=== PATIENT | female | born 1980 | race Caucasian/White ===

== ENCOUNTER → 2016-07-04 | Outpatient (CLI) | payer OTHER | END | disposition home or self-care (01) | LOC: YCFC.O 15:06 | PROVIDERS: ATTEND Nurse Practitioner Family | DX: R50.9 Fever, unspecified (principal) ==

== ENCOUNTER → 2016-07-11 | Outpatient (CLI) | payer OTHER | LOC: YCFC.O 13:42 | PROVIDERS: ATTEND Nurse Practitioner Family | DX: R50.9 Fever, unspecified (principal) ==

== ENCOUNTER → 2017-07-10 | Outpatient (CLI) | payer OTHER | LOC: YCFC.O 13:44 | DX: N97.9 Female infertility, unspecified (principal) ==

== ENCOUNTER → 2018-05-15 | Outpatient (CLI) | payer OTHER | LOC: YCFC.O 08:29 | PROVIDERS: ATTEND Nurse Practitioner Family | DX: Z00.00 Encounter for general adult medical examination without abnormal findings (principal) ==

== ENCOUNTER → 2018-05-25 | Outpatient (CLI) | payer OTHER | LOC: YCFC.O 14:39 | PROVIDERS: ATTEND Family Medicine | DX: R94.5 Abnormal results of liver function studies (principal) ==

== ENCOUNTER → 2019-03-01 | Outpatient (CLI) | payer OTHER ==
--- NOTE | 2019-03-02 10:19 | US ---
EXAM DESCRIPTION: OB Level 2 /Maternal: Ultrasound. CLINICAL HISTORY: 38 years Female Gestational size and dates correlation. . Second trimester. anatomic survey. 2 para 0, AB 1. By medical history , EGA today is 22 weeks, 3 days, with WES of 07/02/2019. COMPARISON: Previous OB ultrasound none available with this gestation. TECHNIQUE: Trans-pelvic scanning through the urine-filled bladder; shipman-scale, color Doppler, and M-mode sonography FINDINGS: Single, intrauterine gestation, breech position. Amniotic fluid volume and KIP: KIP not measured. Volume subjectively normal Maternal cervix internal os visualized. Placenta posterior with no evidence of previa or abruptio. heart rate by M-mode sonography 165 beats/min. limb activity observed. structural survey: Situs solitus. The following structures were visualized and grossly normal - urinary bladder, stomach, and bilateral kidneys; cord insertion, and 3-vessel cord; spine longitudinal, and 4-chamber heart; lateral ventricles, and cerebellum. Nose/lips seen profile and en face. Ultrasound parameter measurements for estimating gestational age: BPD 5.4 cm 22/3 (weeks/days). Head circumference 19.8 cm 22/0. Abdominal circumference 16.8 cm 21/6. Femur length 4.0 cm 22/5. Ultrasound parameter ratios and cephalic index are within the normal range. Mean estimated gestational age is 22 weeks 2 days, corresponding to WES of 07/03/2019. Estimated weight based on these measurements is 486+/- 73 g. 1 pound, 1 ounce. 32nd percentile by medical history. Bilateral adnexa not well seen; ovaries not seen IMPRESSION: 1. Single, living, intrauterine gestation in breech presentation. Amniotic fluid volume subjectively normal, and maternal cervix internal os visualized. Placenta posterior with no evidence of previa. Structural survey grossly normal . 2. Estimated gestational age by today's ultrasound examination is 22 weeks 2 days with WSE 07/03/2019. This is one day younger than the estimated gestation age by medical history. 3. Estimated weight is 486 g. 1 pound, 1 ounce. 32nd Percentile by medical history. Electronically signed by: Chinmay Davis MD 03/02/2019 10:13 AM CDT
== END ==
LOC: US 12:30
PROVIDERS: ATTEND Family Medicine
DX: Z34.91 Encounter for supervision of normal pregnancy, unspecified, first trimester (principal); Z3A.22 22 weeks gestation of pregnancy

== ENCOUNTER → 2019-04-26 | Outpatient (CLI) | payer OTHER | LOC: LAB 08:00 | PROVIDERS: ATTEND Family Medicine | DX: Z34.91 Encounter for supervision of normal pregnancy, unspecified, first trimester (principal) ==

== ENCOUNTER 2019-09-03 23:36 | Emergency (ER) | payer BC, OTHER ==
[2019-09-04 00:11] VITALS: BP 142/100; TEMP 100.4; O2SAT 95
--- NOTE | 2019-09-04 00:14 | ED.PDOC ---
History of Present Illness - General Chief Complaint: Fever Stated Complaint: fever, body aches Time Seen by Provider: 09/04/19 00:11 Source: patient Exam Limitations: no limitations - History of Present Illness Initial Comments: Pt says she has body aches and fever up to 102F at home. Pt denies GODFREY, sore throat, congestion, cough. Pt denies SOB, CP, abd pain, N/V/D. Pt is breas tfeeding, and not c/o breast pain. Pt denies urinary symptoms. Pt has no known sick contacts and has not had any travel within the past 6 months. 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 Pt has no known sick contacts. Review of Systems - Review of Systems Constitutional: States: chills, fever, weakness EENTM: States: no symptoms reported. Denies: double vision, ear pain, ear discharge, nose pain, nose congestion, throat pain, throat swelling Respiratory: States: no symptoms reported. Denies: cough, short of breath Cardiology: States: no symptoms reported. Denies: chest pain, edema, palpitations Gastrointestinal/Abdominal: States: no symptoms reported. Denies: abdominal pain, constipation, diarrhea, nausea, vomiting Genitourinary: States: no symptoms reported. Denies: dysuria, frequency, hematuria, pain Musculoskeletal: States: muscle pain. Denies: back pain, joint pain Skin: States: no symptoms reported. Denies: rash Neurological: States: no symptoms reported. Denies: headache Endocrine: States: no symptoms reported Hematologic/Lymphatic: States: no symptoms reported Past Medical History (General) - Patient Medical History Hx Asthma: No Hx Gastroesophageal Reflux: No Hx Renal Disease: No Surgical History: appendectomy - Vaccination History Hx Influenza Vaccination: Yes - Social History Hx Tobacco Use: No Hx Alcohol Use: No Family Medical History - Family History Mother Family History: Unknown Physical Exam - Physical Exam General Appearance: Alert, Comfortable, No apparent distress ENT Exam: normal ENT inspection, TMs normal, pharynx normal, nasal congestion Neck: non-tender, full range of motion, supple, normal inspection Respiratory: chest non-tender, lungs clear, normal breath sounds, no respiratory distress, no accessory muscle use Cardiovascular/Chest: normal peripheral pulses, regular rate, rhythm, no edema, no gallop Gastrointestinal/Abdominal: normal bowel sounds, non tender, soft, no organomegaly, no pulsatile mass Neurologic: alert, normal mood/affect, oriented x 3 Skin Exam: normal color Progress - Progress Progress: 09/04/19 00:15 Since pt healthcare worker, 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 Pt knows turnaround likely ~48h. Pt would like to be contacted about flu and strep results. Pt expressed interest in quarantining (to the best of her ability) from her children. Another risk factor is that her works in the radiology department at multiple hospitals. Pt says she had Influenza in May 13 and is UTD on immunizations (including influenza). I asked pt to only take Tylenol for fever and to increase water intake. 09/04/19 06:49 Vital Signs - 8 hr 09/03/19 09/04/19 23:37 00:30 Temperature 100.4 F H Pulse Rate [ 105 H 105 H left] Respiratory 20 20 Rate Blood Pressure 142/100 142/100 [left] O2 Sat by Pulse 95 Oximetry Departure - Departure Clinical Impression: Viral illness Time of Disposition: 00:17 Disposition: Discharge to Home or Self Care Condition: Good Departure Forms: ED Discharge - Pt. Copy, Patient Portal Self Enrollment Instructions: DI for Fever (Symptom) -- Adult Diet: resume usual diet Activity: increase activity as tolerated Referrals: Alejandro Garnica MD [Primary Care Provider] - 1-2 Weeks
== END 2019-09-04 00:30 | disposition home or self-care (01) ==
LOC: ER 23:36
DX: B34.9 Viral infection, unspecified (principal); R50.9 Fever, unspecified; Z03.818 Encounter for observation for suspected exposure to other biological agents ruled out
CPT/HCPCS: 87070; 87502; 87880; U0002

== ENCOUNTER → 2019-12-10 | Outpatient (CLI) | payer BC | LOC: YCFC.O 15:50 | PROVIDERS: ATTEND Family Medicine | DX: Z03.818 Encounter for observation for suspected exposure to other biological agents ruled out (principal); Z20.828 Contact with and (suspected) exposure to other viral communicable diseases ==

== ENCOUNTER → 2020-05-04 | Outpatient (CLI) | payer BC | LOC: YCFC.O 08:26 | PROVIDERS: ATTEND Family Medicine | DX: Z00.00 Encounter for general adult medical examination without abnormal findings (principal); Z86.32 Personal history of gestational diabetes; E55.9 Vitamin D deficiency, unspecified; N97.9 Female infertility, unspecified; R53.83 Other fatigue ==

== ENCOUNTER → 2020-05-16 | Outpatient (CLI) | payer BC | LOC: YCFC.O 16:49 | PROVIDERS: ATTEND Family Medicine | DX: Z20.828 Contact with and (suspected) exposure to other viral communicable diseases (principal) ==